=== PATIENT | female | born 1995 ===

== ENCOUNTER 2016-07-12 20:33 | Emergency (ER) | payer OTHER ==
[2016-07-12 21:46] LABS: HCG,QUALITATIVE URINE NEGATIVE
[2016-07-12] MEDS ORDERED: IBUPROFEN 600 MG TABLET ONE (21:58)
[2016-07-12] MEDS ORDERED: ACETAMINOPHEN 325 MG TABLET ONE (21:58)
== END 2016-07-12 22:07 | disposition home or self-care (01) ==
LOC: ED 20:33
DX: M54.5 Low back pain (principal); M54.2 Cervicalgia; V43.52XA Car driver injured in collision with other type car in traffic accident, initial encounter; Y92.410 Unspecified street and highway as the place of occurrence of the external cause
CPT/HCPCS: 81025; 99283 ×2; A9270 ×2